=== PATIENT | male | born 1985 ===

== ENCOUNTER 2022-05-20 10:20 | Emergency (ER) | payer BC, MEDICAID ==
[2022-05-20] MEDS ORDERED: Morphine 2 MG/ML SYRINGE IVPUSH ONE (10:22)
[2022-05-20] MEDS ORDERED: Aspirin 81 MG Tab.Chew PO ONE (10:22)
[2022-05-20] MEDS ORDERED: Aspirin 81 MG Tab.Chew ONE (10:22)
[2022-05-20 11:04] LABS: ANION GAP 9.9 mEq/L (7-13)
[2022-05-20 11:45] LABS: CORONAVIRUS COVID-19 NAA NEGATIVE (NEGATIVE)
[2022-05-20] MEDS ORDERED: GI Cocktail Oral Solution 30 ML PO ONE (11:57)
== END 2022-05-20 12:35 | disposition home or self-care (01) ==
LOC: DL.ED 10:20
DX: K21.9 Gastro-esophageal reflux disease without esophagitis (principal); Z20.822 Contact with and (suspected) exposure to COVID-19
CPT/HCPCS: 0240U; 36415; 71045; 80053; 82150; 83605; 83690; 84484; 85025; 85379; 85610; 93005; 96374; 99285; A9270; J2270